=== PATIENT | male | born 1975 ===

== ENCOUNTER 2016-09-12 14:56 | Emergency (ER) | payer MEDICAID ==
[2016-09-12 14:56] VITALS: BMI 29.0
[2016-09-12 15:08] VITALS: BP 140/90; PULSE 82; RESP 18; TEMP 97.8; O2SAT 98
--- NOTE | 2016-09-12 15:54 | ED PDOC ---
Upper Extremity Pain/Injury Time Seen by Provider: 09/12/16 15:16 Chief Complaint (Nursing): Upper Extremity Problem/Injury Chief Complaint (Provider): Neck Pain History Per: Patient Additional Complaint(s): 41 year old patient, with a past medical history of back problems and gastritis , presents to the ED complaining of right side neck and shoulder pain for the past 3 weeks. Patient states he has decreased ROM to the right due to pain. He took Motrin with some improvement of pain. Patient denies any known injury, fever, chills, numbness, weakness or tinging sensation in the upper extremities. Pt seen and evaluated by [facility] ED yesterday, was given Toradol IM which he noted gave him transient relief. Pt upset because no imaging was done Past Medical History Reviewed: Nursing Documentation, Vital Signs Vital Signs: Last Vital Signs Temp 97.8 F 09/12/16 15:05 Pulse 82 09/12/16 15:05 Resp 18 09/12/16 15:05 BP 140/90 09/12/16 15:05 Pulse Ox 98 09/12/16 15:05 - Medical History PMH: Anxiety (NO MED AT PRESENT), Back Problems, Depression (NO MED AT PRESENT) , Gastritis Denies: Chronic Kidney Disease - Surgical History Surgical History: Cholecystectomy - Family History Family History: States: Unknown Family Hx - Living Arrangements Living Arrangements: With Family - Social History Current smoker - smoking cessation education provided: No Alcohol: Social Drugs: Denies - Immunization History Hx Tetanus Toxoid Vaccination: No Hx Influenza Vaccination: No Hx Pneumococcal Vaccination: No - Home Medications Home Medications: Ambulatory Orders Medication Instructions Recorded Methocarbamol [Robaxin-750] 750 mg PO TID #21 tablet 09/11/16 Cyclobenzaprine [Cyclobenzaprine 10 mg PO TID #20 tab 09/12/16 HCl] Ibuprofen [Motrin] 600 mg PO Q6 #20 tab 09/12/16 oxyCODONE/Acetaminophen [Percocet 1 ea PO Q6 PRN #5 tab 09/12/16 5/325 mg Tab] - Allergies Allergies/Adverse Reactions: Allergies Allergy/AdvReac Type Severity Reaction Status Date / Time Penicillins Allergy Intermediate Verified 09/11/16 12:47 FISH Allergy Verified 09/11/16 12:47 shellfish derived Allergy Verified 09/11/16 12:47 Review of Systems ROS Statement: Except As Marked, All Systems Reviewed And Found Negative Musculoskeletal: Positive for: Neck Pain Physical Exam - Reviewed Nursing Documentation Reviewed: Yes Vital Signs Reviewed: Yes - Physical Exam Appears: Positive for: Well, Non-toxic, No Acute Distress Head Exam: Positive for: ATRAUMATIC, NORMAL INSPECTION, NORMOCEPHALIC Skin: Positive for: Normal Color, Warm, DRY Eye Exam: Positive for: EOMI, Normal appearance, PERRL ENT: Positive for: Normal ENT Inspection Neck: Positive for: Supple, Limited ROM, Pain On Movement Of Neck (to ipsilateral side) Cardiovascular/Chest: Positive for: Regular Rate, Rhythm Respiratory: Positive for: CNT, Normal Breath Sounds Gastrointestinal/Abdominal: Positive for: Normal Exam, Bowel Sounds, Soft Back: Positive for: Normal Inspection Extremity: Positive for: Normal ROM Neurologic/Psych: Positive for: Alert, Oriented - ECG O2 Sat by Pulse Oximetry: 98 Medical Decision Making Medical Decision Making: Cervical spine: NAD, as read by FERNANDO Medicated with Toradol, felxeril and Percocet Pt reports feeling better on re-eval. IMprotance of follow up stressed and Pt advised to return to ED if at anytime condition worsens Disposition - Clinical Impression Clinical Impression: Cervical strain - Patient ED Disposition Is Patient to be Admitted: No - Disposition Disposition: Routine/Home Disposition Time: 17:31 Condition: STABLE Prescriptions: Cyclobenzaprine [Cyclobenzaprine HCl] 10 mg PO TID #20 tab Ibuprofen [Motrin] 600 mg PO Q6 #20 tab oxyCODONE/Acetaminophen [Percocet 5/325 mg Tab] 1 ea PO Q6 PRN #5 tab PRN Reason: Pain, Severe (8-10) Instructions: Cervical Strain (DC) - POA Present On Arrival: None
[2016-09-12] MEDS ORDERED: Oxycodone/Acetaminophen 5/325 mg Tab PO STA (15:57)
[2016-09-12] MEDS ORDERED: Oxycodone/Acetaminophen 5/325 mg Tab ONE (16:17)
--- NOTE | 2016-09-12 17:03 | RAD ---
PROCEDURE: Cervical Spine Radiographs. HISTORY: Pain. COMPARISON: None available. FINDINGS: BONES: Straightening of the normal cervical lordosis may be related to muscle spasm or positioning. No acute displaced fracture identified. Dens tip obscured. The cervical spine is not well-visualized beyond the superior endplate of L7 on lateral views. DISC SPACES: Unremarkable. SOFT TISSUES: No evidence of radiopaque foreign body. No prevertebral soft tissue swelling. OTHER FINDINGS: None. IMPRESSION: Limited study as above. No acute displaced fracture identified.
== END 2016-09-12 17:57 | disposition home or self-care (01) ==
LOC: H.ER 14:56
DX: M54.2 Cervicalgia (principal); F41.9 Anxiety disorder, unspecified; Z88.0 Allergy status to penicillin